=== PATIENT | female | born 1965 | race Hispanic/Latino ===

== ENCOUNTER 2018-09-15 20:36 | Emergency (ER) | payer OTHER ==
[2018-09-15 20:44] VITALS: BP 116/74; PULSE 76; RESP 20; TEMP 97.9; O2SAT 100
--- NOTE | 2018-09-15 21:09 | C.PDOC ---
History Of Present Illness 52 y/o female presents to the ED for evaluation of a right foot injury sustained tonight. Patient states while at the gym using the stair master, she went to step down and accidentally smashed her right foot between two pieces of the machine. Patient denies any numbness or tingling. She took 3 advil prior to arrival with some relief. No other injuries. Time Seen by Provider: 09/15/18 20:46 Chief Complaint (Nursing): Lower Extremity Problem/Injury History Per: Patient History/Exam Limitations: no limitations Onset/Duration Of Symptoms: Hrs Current Symptoms Are (Timing): Still Present Past Medical History Reviewed: Historical Data, Nursing Documentation, Vital Signs Vital Signs: Last Vital Signs Temp 97.9 F 09/15/18 20:41 Pulse 76 09/15/18 20:41 Resp 20 09/15/18 20:41 BP 116/74 09/15/18 20:41 Pulse Ox 100 09/15/18 20:41 - Medical History PMH: No Chronic Diseases Surgical History: No Surg Hx Family History: States: Unknown Family Hx - Social History Hx Alcohol Use: No Hx Substance Use: No - Immunization History Hx Tetanus Toxoid Vaccination: No Hx Influenza Vaccination: No Hx Pneumococcal Vaccination: No Review Of Systems Constitutional: Negative for: Fever, Weakness Cardiovascular: Negative for: Chest Pain Respiratory: Negative for: Shortness of Breath Gastrointestinal: Negative for: Abdominal Pain Musculoskeletal: Positive for: Foot Pain (right). Negative for: Back Pain Neurological: Negative for: Weakness, Numbness, Incoordination Physical Exam - Physical Exam Appears: Well, Non-toxic, No Acute Distress Skin: Normal Color, Warm, No Rash Head: Atraumatic, Normacephalic Eye(s): bilateral: Normal Inspection Neck: Normal ROM Chest: Symmetrical Respiratory: No Accessory Muscle Use, Other (Normal inspiratory effort) Extremity: Tenderness (over distal dorsal aspect of right foot), Capillary Refill (< 2 sec), No Deformity, No Swelling (or ecchymosis to the toes or foot) Pulses: Left Dorsalis Pedis: Normal, Right Dorsalis Pedis: Normal Neurological/Psych: Oriented x3, Normal Motor, Normal Sensation ED Course And Treatment O2 Sat by Pulse Oximetry: 100 (RA) Pulse Ox Interpretation: Normal Medical Decision Making Medical Decision Making: Impression: Right foot injury Plan: * Right foot x-ray * 50 mg PO Tramadol Imaging reviewed by me, shows no acute fracture or dislocation. WILD wrap applied. Patient is stable for discharge home. Educated patient on RICE instructions and the need for follow up. 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 - Scribe Statement The provider has reviewed the documentation as recorded by the Scribeloisa Menon All medical record entries made by the Martinibeloisa were at my direction and personally dictated by me. I have reviewed the chart and agree that the record accurately reflects my personal performance of the history, physical exam, medical decision making, and the department course for this patient. I have also personally directed, reviewed, and agree with the discharge instructions and disposition.
--- NOTE | 2018-09-16 07:09 | RAD ---
Date of service: 09/15/2018 PROCEDURE: Right Foot Radiographs. HISTORY: injury COMPARISON: None. FINDINGS: BONES: No acute fracture appreciated. Fifth metatarsal shaft deformity consistent with prior old healed fracture. No residual fracture lines noted. Here possible concomitant distal 5th metatarsal metaphyseal intraosseous cyst present. Small cortical convexities-1st metatarsal head-erosions here a consideration. No gross gouty tophi noted JOINTS: First metatarsal-phalangeal joint space narrowing with mild 1st proximal phalangeal medial spurring SOFT TISSUES: Bordering the tarsal 1st metatarsal joint per oblique series 2, image 1 flake osseous avulsion here is 1 consideration no focal soft tissue swelling to suggest acute injury appreciated. Arrow also indicates injury [id number] OTHER FINDINGS: None. IMPRESSION: No acute fracture appreciated. Old 5th metatarsal healed fracture deformity 1st metatarsal-phalangeal joint arthrosis-erosions noted. County arthrosis not excluded
== END 2018-09-15 22:00 | disposition home or self-care (01) ==
LOC: C.ER 20:36
DX: S90.31XA Contusion of right foot, initial encounter (principal); W31.9XXA Contact with unspecified machinery, initial encounter; Y92.39 Other specified sports and athletic area as the place of occurrence of the external cause